=== PATIENT | male | born 1985 | race Two or more races ===

== ENCOUNTER 2023-02-14 10:17 | Outpatient (CLI) | payer OTHER ==
--- NOTE | 2023-02-14 18:39 | MRI Report ---
PROCEDURE: MRI lumbar spine without contrast INDICATIONS: LOW BACK PAIN TECHNIQUE: Multiplanar multisequential MRI images of the lumbar spine were obtained without intraven ous contrast. COMPARISON: None. FINDINGS: Alignment and Curvature: There is normal bony alignment. Bone Marrow: Marrow is of normal overall signal. No acute vertebral body compression fractures. No sacral fractures. Spinal Cord: Conus medullaris terminates at the L1 level. Visualized cord demonstrates normal signa l and size. Paraspinal Soft Tissues: Unremarkable perivertebral soft tissues. T12-L1: Normal in appearance. L1-L2: Disc space narrowing and mild disc bulge without central or foraminal stenosis L2-L3: Normal in appearance. L3-L4: Normal in appearance. L4-L5: Disc space narrowing and mild disc bulge without central or foraminal stenosis L5-S1: Disc space narrowing and posterior disc bulge without central or foraminal stenosis IMPRESSION: Mild degenerative disc disease without central or foraminal stenosis throughout the exam Reviewed by: Marcelino Medina MD on 02/14/2023 5:38 PM [facility]ST Approved by: Marcelino Medina MD on 02/14/2023 5:38 PM AKST Station ID: [id number]
== END 2023-02-14 10:18 | disposition home or self-care (01) ==
LOC: DI 10:17
DX: M51.36 Other intervertebral disc degeneration, lumbar region (principal); M51.37 Other intervertebral disc degeneration, lumbosacral region